=== PATIENT | female | born 1970 | race Caucasian/White ===

== ENCOUNTER → 2023-09-16 17:28 | Outpatient (REF) | payer BC, SELFPAY | LOC: RCS 17:28 | PROVIDERS: ATTENDING PHYSICIAN Internal Medicine Cardiovascular Disease; FAMILY PHYSICIAN Family Medicine | DX: R06.09 Other forms of dyspnea (principal); E78.2 Mixed hyperlipidemia; Z84.89 Family history of other specified conditions | CPT/HCPCS: 93306 ==

== ENCOUNTER → 2023-10-15 07:28 | Outpatient (REF) | payer BC, SELFPAY | LOC: RCS 07:28 | PROVIDERS: ATTENDING PHYSICIAN Internal Medicine Cardiovascular Disease; FAMILY PHYSICIAN Family Medicine | DX: R06.09 Other forms of dyspnea (principal); E78.2 Mixed hyperlipidemia; Z84.89 Family history of other specified conditions | CPT/HCPCS: 93017 ==

== ENCOUNTER → 2024-08-24 16:19 | Outpatient (REF) | payer BC, SELFPAY | LOC: HWWDC 16:19 | PROVIDERS: ATTENDING PHYSICIAN Obstetrics & Gynecology; FAMILY PHYSICIAN Family Medicine | DX: Z12.31 Encounter for screening mammogram for malignant neoplasm of breast (principal) | CPT/HCPCS: 77063; 77067 ==